=== PATIENT | male | born 1995 | race Two or more races ===

== ENCOUNTER 2022-11-17 21:07 | Emergency (ER) | payer OTHER ==
[~2022-11-17] VITALS: Ht 180.3 cm; Wt 104.5 kg
[2022-11-17] MEDS ORDERED: CLIN300C58 PO (23:56)
[2022-11-17] MEDS ORDERED: DOXY-354 PO (23:56)
[2022-11-18] MEDS ORDERED: DOXYCYCLINE HYCLATE 100 MG TABLET PO ONE
[2022-11-18] MEDS ORDERED: CLINDAMYCIN HCL 150 MG CAPSULE PO ONE
[2022-11-18] MEDS ORDERED: GENTAMICIN SULFATE 40 MG/ML 2 ML VIAL IM ONE
[2022-11-18 00:21] VITALS: BP 116/68
== END 2022-11-18 00:56 | disposition home or self-care (01) ==
LOC: EMS 21:09
DX: L03.116 Cellulitis of left lower limb (principal); F17.210 Nicotine dependence, cigarettes, uncomplicated; Z88.0 Allergy status to penicillin; Z88.8 Allergy status to other drugs, medicaments and biological substances
CPT/HCPCS: 99283; 96372; J1580

== ENCOUNTER 2023-08-23 21:10 | Inpatient (IN) | payer MEDICAID, OTHER ==
[~2023-08-23] VITALS: Ht 177.8 cm; Wt 94.0 kg
[~2023-08-23 21:10] MED LIST: CLIN300C58 PO; DOXY-354 PO
[2023-08-23 22:10] LABS: BASOPHILS % (AUTO) 0.7 % (0.0-2.0); EOSINOPHILS % (AUTO) 1.1 % (1.0-6.0); HEMATOCRIT 32.3 % (41-53); HEMOGLOBIN 10.7 g/dL (13.5-17.5); LYMPHOCYTES # (AUTO) 1.6 K/uL (1.0-4.8); LYMPHOCYTES % (AUTO) 21.3 % (22.0-44.0); MEAN CORPUSCULAR HEMOGLOBIN 27.4 pg (26.0-34.0); MEAN CORPUSCULAR HGB CONC 33.1 G/dL (31.0-37.0); MEAN CORPUSCULAR VOLUME 83 fL (80-100); MONOCYTES # (AUTO) 0.5 K/uL (0.1-1.0); MONOCYTES % (AUTO) 6.2 % (2.0-9.0); NEUTROPHILS # (AUTO) 5.3 K/uL (1.8-7.7); NEUTROPHILS % (AUTO) 70.7 % (40.0-70.0); PLATELET COUNT (AUTO) 227 K/uL (150-450); RED BLOOD CELL COUNT(AUTO) 3.91 MIL/uL (4.50-5.90); RED CELL DISTRIBUTION WIDTH 17.1 % (11.5-14.5); WHITE BLOOD COUNT (AUTO) 7.5 K/uL (4.5-11.0)
[2023-08-23 22:40] LABS: ALCOHOL, BLOOD (SERUM) < 3 mg/dL (0-10)
[2023-08-23 22:43] LABS: COVID AG,FIA SOURCE NASAL SWAB
[2023-08-23 22:43] LABS: ANION GAP 7 mmol/L (8-16); CARBON DIOXIDE 29 mmol/L (22-29); CHLORIDE 101 mmol/L (98-107); CREATININE 0.77 mg/dL (0.60-1.30); GLOMERULAR FILTR. RATE CALC > 60 mL/min (>60); GLUCOSE,RANDOM 137 mg/dL (70-110); POTASSIUM 3.3 mmol/L (3.5-5.1); SODIUM SERUM 137 mmol/L (136-145); UREA NITROGEN, BLOOD 16 mg/dL (7-18)
[2023-08-23 22:49] LABS: ALANINE AMINOTRANSFERASE 24 U/L (12-78); ALBUMIN 3.5 g/dL (3.4-5.0); ALKALINE PHOSPHATASE 73 U/L (46-116); ASPARTATE AMINOTRANSFERASE 28 U/L (15-37); BILIRUBIN,TOTAL 0.2 mg/dL (0.1-1.0); TOTAL PROTEIN, SERUM 7.1 g/dL (6.4-8.2)
[2023-08-23 23:08] LABS: SARS-COV2 (COVID) ANTIGEN,FIA Negative (Negative)
[2023-08-24] MEDS ORDERED: ZOLPIDEM TARTRATE 10 MG TABLET PO PRN (03:45)
[2023-08-24] MEDS ORDERED: HALOPERIDOL 5 MG TABLET PO PRN (03:45)
[2023-08-24] MEDS ORDERED: LORazepam 2 MG TABLET PO PRN (03:45)
[2023-08-24 13:30] VITALS: BP 110/72; PULSE 93; RESP 18; TEMP 97; O2SAT 100
[2023-08-24] MEDS ORDERED: ACETAMINOPHEN 325 MG TABLET PO PRN (18:15)
[2023-08-24] MEDS ORDERED: MAGNESIUM HYDROXIDE SUSPENSION 30 ML UDCUP PO PRN (18:15)
[2023-08-24] MEDS ORDERED: IBUPROFEN 600 MG TABLET PO PRN (18:15)
[2023-08-24] MEDS ORDERED: DOCUSATE SODIUM 100 MG CAPSULE PO PRN (18:15)
[2023-08-24] MEDS ORDERED: OMEPRAZOLE 20 MG CAPSULE PO PRN (18:15)
[2023-08-24] MEDS ORDERED: MAG HYDROX/ALUMINUM HYD/SIMETH ES 30 ML SUSPENSION UDCUP PO PRN (18:15)
[2023-08-24] MEDS ORDERED: PETROLATUM,WHITE 28 GM JELLY TP PRN (18:15)
[2023-08-24] MEDS ORDERED: BENZOCAINE/MENTHOL LOZENGE PO PRN (18:15)
[2023-08-24] MEDS ORDERED: CloNIDine HCL 0.1 MG TABLET PO PRN (18:15)
[2023-08-24] MEDS ORDERED: BACITRACIN 28 GM OINTMENT TP PRN (18:15)
[2023-08-24] MEDS ORDERED: ALBUTEROL SULFATE HFA 90 MCG/PUFF 8 GM INHALER IH PRN (18:15)
[2023-08-24] MEDS ORDERED: LOPERAMIDE HCL 2 MG CAPSULE PO PRN (18:15)
[2023-08-24] MEDS ORDERED: POTASSIUM CHLORIDE 20 MEQ ER TABLET PO ONE (18:30)
[2023-08-24 21:22] VITALS: BP 98/69; PULSE 60; RESP 18; TEMP 97.8; O2SAT 99
[2023-08-25 08:44] VITALS: BP 110/61; PULSE 70; RESP 16; TEMP 98.4; O2SAT 99
[2023-08-25 20:37] VITALS: RESP 20; TEMP 98
[2023-08-26] MEDS: CITALOPRAM HYDROBROMIDE 20 MG TABLET PO SCH (09:00)
[2023-08-26 09:38] VITALS: BP 124/70; PULSE 69; RESP 16; TEMP 97.9; O2SAT 99
[2023-08-26 20:17] VITALS: BP 123/69; PULSE 84; RESP 19; TEMP 98.5; O2SAT 100
[2023-08-26 21:00] VITALS: BP 124/75; PULSE 60; RESP 18; TEMP 97.3; O2SAT 100
[2023-08-26] MEDS: ONDANSETRON HCL 4 MG TABLET PO PRN (21:10)
[2023-08-26 21:45] VITALS: BP 118/72; PULSE 62; RESP 18; TEMP 97.3; O2SAT 100
[2023-08-26] MEDS ORDERED: ONDANSETRON HCL 4 MG/2 ML VIAL IM ONE (22:15)
[2023-08-27 03:45] VITALS: BP 117/64; PULSE 65; RESP 18; TEMP 97.5; O2SAT 100
[2023-08-27] MEDS: CITALOPRAM HYDROBROMIDE 20 MG TABLET PO SCH (10:32)
[2023-08-27] MEDS: ONDANSETRON HCL 4 MG TABLET PO PRN (12:07)
[2023-08-27 12:20] VITALS: BP 112/72; PULSE 64; RESP 18; TEMP 98.2; O2SAT 96
[2023-08-27] MEDS ORDERED: ONDANSETRON HCL 4 MG/2 ML VIAL IM ONE ×2 (12:45)
[2023-08-27 13:46] LABS: GLUCOMETER DEV NAME(LOC) POC.BV; POC SARS-COV2 AG, FIA NEGATIVE (NEGATIVE)
== END 2023-08-27 16:45 | disposition left against medical advice (07) | DRG 750 ==
LOC: EMS 21:57 → B2S 08-24 10:05 → UNDODISIN 08-27 16:45
PROVIDERS: ADMIT Psychiatry & Neurology Psychiatry; ATTEND Psychiatry & Neurology Psychiatry
DX: F25.9 Schizoaffective disorder, unspecified (principal); R45.851 Suicidal ideations; E87.6 Hypokalemia; F32.9 Major depressive disorder, single episode, unspecified; F41.9 Anxiety disorder, unspecified; G47.00 Insomnia, unspecified; Z20.822 Contact with and (suspected) exposure to COVID-19; K59.00 Constipation, unspecified; F15.10 Other stimulant abuse, uncomplicated; Z87.891 Personal history of nicotine dependence; Z88.0 Allergy status to penicillin; Z88.1 Allergy status to other antibiotic agents
CPT/HCPCS: 80053; 84132; 85025; G0480; J2405; Q0162

== ENCOUNTER 2023-08-27 05:34 | Emergency (ER) | payer MEDICAID ==
[~2023-08-27] VITALS: Ht 162.6 cm; Wt 69.4 kg
[2023-08-27 06:51] LABS: BASOPHILS % (AUTO) 0.3 % (0.0-2.0); EOSINOPHILS % (AUTO) 0 % (1.0-6.0); HEMATOCRIT 40.8 % (41-53); HEMOGLOBIN 13.7 g/dL (13.5-17.5); LYMPHOCYTES # (AUTO) 1.7 K/uL (1.0-4.8); LYMPHOCYTES % (AUTO) 20.8 % (22.0-44.0); MEAN CORPUSCULAR HEMOGLOBIN 27.2 pg (26.0-34.0); MEAN CORPUSCULAR HGB CONC 33.4 G/dL (31.0-37.0); MEAN CORPUSCULAR VOLUME 81 fL (80-100); MONOCYTES # (AUTO) 0.5 K/uL (0.1-1.0); MONOCYTES % (AUTO) 5.8 % (2.0-9.0); NEUTROPHILS % (AUTO) 73.1 % (40.0-70.0); PLATELET COUNT (AUTO) 310 K/uL (150-450); RED BLOOD CELL COUNT(AUTO) 5.03 MIL/uL (4.50-5.90); RED CELL DISTRIBUTION WIDTH 17.1 % (11.5-14.5); WHITE BLOOD COUNT (AUTO) 8.3 K/uL (4.5-11.0)
[2023-08-27 07:11] LABS: ANION GAP 10 mmol/L (8-16); CALCIUM, TOTAL 9.5 mg/dL (8.8-10.5); CARBON DIOXIDE 27 mmol/L (22-29); CHLORIDE 95 mmol/L (98-107); CREATININE 0.85 mg/dL (0.60-1.30); GLOMERULAR FILTR. RATE CALC > 60 mL/min (>60); GLUCOSE,RANDOM 103 mg/dL (70-110); POTASSIUM 3.8 mmol/L (3.5-5.1); SODIUM SERUM 132 mmol/L (136-145); UREA NITROGEN, BLOOD 19 mg/dL (7-18)
[2023-08-27 07:28] LABS: LACTIC ACID 0.9 mmol/L (0.4-2.0)
[2023-08-27 07:37] VITALS: TEMP 98.2
[2023-08-27 07:38] LABS: ALANINE AMINOTRANSFERASE 21 U/L (12-78); ALKALINE PHOSPHATASE 70 U/L (46-116); ASPARTATE AMINOTRANSFERASE 19 U/L (15-37); BILIRUBIN,TOTAL 0.4 mg/dL (0.1-1.0); CREATINE KINASE, TOTAL ONLY 81 U/L (39-308); LIPASE 25 U/L (16-77)
[2023-08-27] MEDS: SODIUM CHLORIDE 0.9% 2,000 ML IV ONE (08:15)
[2023-08-27 09:39] LABS: ALCOHOL, URINE DRUG SCREEN NEGATIVE (NEGATIVE); AMPHET/METH SCREEN,URINE POSITIVE (NEGATIVE); BARBITURATE SCREEN, URINE NEGATIVE (NEGATIVE); BENZODIAZEPINES SCREEN,URINE NEGATIVE (NEGATIVE); CANNABINOID SCREEN,URINE NEGATIVE (NEGATIVE); COCAINE SCREEN,URINE NEGATIVE (NEGATIVE); METHADONE SCREEN, URINE NEGATIVE (NEGATIVE); OPIATE SCREEN,URINE NEGATIVE (NEGATIVE); PHENCYCLIDINE SCREEN,URINE NEGATIVE (NEGATIVE)
[2023-08-27 10:00] VITALS: BP 125/84; PULSE 70; RESP 16
== END 2023-08-27 10:02 | disposition home or self-care (01) ==
LOC: EMS 05:35
DX: F32.9 Major depressive disorder, single episode, unspecified (principal); R11.2 Nausea with vomiting, unspecified; F15.10 Other stimulant abuse, uncomplicated; F11.10 Opioid abuse, uncomplicated; F17.210 Nicotine dependence, cigarettes, uncomplicated; Z88.0 Allergy status to penicillin; Z88.8 Allergy status to other drugs, medicaments and biological substances
CPT/HCPCS: 99283; 96360; 80053; 82550; 83605; 83690; 85025; 36415; 80307; J7030

== ENCOUNTER 2023-08-27 15:52 | Emergency (ER) | payer MEDICAID | END 2023-08-27 16:48 | disposition left against medical advice (07) | LOC: EMS 15:53 | DX: Z53.21 Procedure and treatment not carried out due to patient leaving prior to being seen by health care provider (principal) ==